=== PATIENT | female | born 1930 | race Caucasian/White ===

== ENCOUNTER 2019-08-16 02:59 | Emergency (ER) | payer MEDICARE, BC ==
[~2019-08-16] VITALS: Ht 160 cm; Wt 62.1 kg
[2019-08-16] MEDS ORDERED: LINA145C PO (03:18)
[2019-08-16] MEDS ORDERED: MULT1TAB72 PO (03:18)
[2019-08-16] MEDS ORDERED: CYCL5.5D OP (03:18)
[2019-08-16] MEDS ORDERED: FENT1PAT6 TOP (03:18)
[2019-08-16] MEDS ORDERED: HYDR-4384 PO (03:18)
[2019-08-16] MEDS ORDERED: LEVO100T PO (03:18)
[2019-08-16] MEDS ORDERED: OLAN5TAB3 PO (03:18)
[2019-08-16] MEDS ORDERED: TIMO5DRO39 OP (03:18)
[2019-08-16] MEDS ORDERED: TRAM50TA2 PO (03:18)
[2019-08-16] MEDS ORDERED: ATOR20TA PO (03:18)
--- NOTE | 2019-08-16 03:20 | NUR ---
Patient PAOLO GARZA from [facility]. c/o mechanical fall. Patient A&O x4. small laceration noted on left forehead. Patient states she was trying to grab something beside her bed and she fell. Patient denies any LOC. Speech is clear and able to make needs known / follow commands. Patient denies any JACOME, Blurred vision, dizziness. Patient also c/o right shoulder soreness. Patient able to move LUE pulses palpable, no visible injury noted. Breathing even and unlabored. no cough or SOB noted. Denies any N / V / D.
--- NOTE | 2019-08-16 03:20 | NUR ---
Dr. Long at bedside for MSE
[2019-08-16] MEDS ORDERED: ACETAMINOPHEN ES 500 MG TABLET ONE (03:29)
[2019-08-16] MEDS ORDERED: ACETAMINOPHEN ES 500 MG TABLET PO ONE (03:30)
--- NOTE | 2019-08-16 03:33 | NUR ---
patient taken to CT scan in stable condition via gurney
--- NOTE | 2019-08-16 03:58 | NUR ---
Patient back from CT scan
--- NOTE | 2019-08-16 04:51 | NUR ---
Spoke with Staff from [facility] and informed that patient is being d/c from ED. Transportation set up with [employer] trip # [id number] with eta of [id number]. Patient is going to room 237
--- NOTE | 2019-08-16 05:00 | NUR ---
Patient in bed sleeping but easily arousable. Breathing even and unlabored. NAD noted
--- NOTE | 2019-08-16 07:16 | NUR ---
Patient taken by [facility] unit [address] in stable condition. all belongings with patient. NAD
[2019-08-16 07:18] VITALS: BP 103/55
== END 2019-08-16 07:19 ==
LOC: ER 03:03
DX: S00.81XA Abrasion of other part of head, initial encounter (principal); S49.91XA Unspecified injury of right shoulder and upper arm, initial encounter; W06.XXXA Fall from bed, initial encounter; Y92.092 Bedroom in other non-institutional residence as the place of occurrence of the external cause; M50.30 Other cervical disc degeneration, unspecified cervical region; E78.5 Hyperlipidemia, unspecified; E03.9 Hypothyroidism, unspecified; I67.2 Cerebral atherosclerosis
CPT/HCPCS: 70450; 72125; 73030; A4663; A9150

== ENCOUNTER 2020-09-15 11:30 | Emergency (ER) | payer MEDICARE, BC ==
[~2020-09-15] VITALS: Ht 160 cm; Wt 63.5 kg
[~2020-09-15 11:30] MED LIST: ATOR20TA PO; CYCL5.5D OP; FENT1PAT6 TOP; HYDR-4384 PO; LEVO100T PO; LINA145C PO; MULT1TAB72 PO; OLAN5TAB3 PO; TIMO5DRO39 OP; TRAM50TA2 PO
--- NOTE | 2020-09-15 11:30 | NUR ---
Patient is awake, respiration:easy, moves all extremities with her private [email or web address].
[2020-09-15] MEDS ORDERED: IV NORMAL SALINE 1000 ML BAG IV ONE (11:45)
[2020-09-15] MEDS ORDERED: ONDANSETRON 4 MG/2 ML VIAL IV ONE (11:45)
[2020-09-15] MEDS ORDERED: FENT1PAT6 TP (11:55)
[2020-09-15] MEDS ORDERED: ONDANSETRON 4 MG/2 ML VIAL ONE (12:01)
[2020-09-15] MEDS ORDERED: COLL30OI TOP (12:02)
[2020-09-15] MEDS ORDERED: ACET-2154 PO (12:02)
[2020-09-15] MEDS ORDERED: TRIA1CAP19 PO (12:02)
[2020-09-15 12:25] LABS: HEMATOCRIT 37.2 % (31.2-41.9); MEAN CORPUSCULAR HEMOGLOBIN 30.3 uug (24.7-32.8); MEAN CORPUSCULAR VOLUME 94.2 fL (75.5-95.3); PLATELET COUNT (AUTO) 379 K/uL (179-408)
[2020-09-15 12:31] LABS: CREATININE 0.8 mg/dL (0.6-1.3); POTASSIUM 3.8 mmol/L (3.5-5.1)
[2020-09-15 12:37] LABS: BILIRUBIN,DIRECT 0.1 mg/dL (0.0-0.2); BILIRUBIN,TOTAL 0.4 mg/dL (0.2-1.0); TOTAL PROTEIN, SERUM 7.3 g/dL (6.4-8.2)
[2020-09-15 12:57] LABS: *BILIRUBIN,URIN NEGATIVE (NEGATIVE); *CLARITY,URINE SLIGHTLY CLOUDY (CLEAR); *COLOR,URINE YELLOW (YELLOW); *KETONES,URINE NEGATIVE (NEGATIVE); *UROBILINOGEN,URINE 0.2 E.U./dl (NORMAL); LEUKOCYTE ESTERASE ,URINE 2+ (NEGATIVE); NITRITE, URINE NEGATIVE (NEGATIVE); UGLUCOSE NEGATIVE (NEGATIVE)
[2020-09-15 12:58] LABS: *BLOOD, URINE TRACE (NEGATIVE)
--- NOTE | 2020-09-15 13:08 | NUR ---
No acute change in condition seen. Patient is resting comfortably on gurney with eyes closed.
[2020-09-15] MEDS ORDERED: NITROFURANTOIN/NITROFURAN MAC 100 MG CAPSULE PO ONE ×2 (13:30→13:36)
--- NOTE | 2020-09-15 14:06 | NUR ---
Patient was assisted to bathroom to void. Patient denies any pains@the moment.
[2020-09-15 14:27] LABS: BACTERIA,URINE MANY /HPF (NONE SEEN); MUCUS,URINE FEW /LPF (0-FEW); SQUAMOUS EPITHELIAL CELL,UR FEW /HPF (NONE SEEN); URINE AMORPHOUS PHOSPHATES MANY /HPF; WBC,URINE TNTC /HPF (0-3)
--- NOTE | 2020-09-15 14:27 | NUR ---
IV removed. Catheter intact and site benign. Pressure and 4x4 gauze applied to site. No bleeding noted. Patient discharged to assisted living home in stable condition. Written and verbal after care instructions given to patient's caregiver and copies of all the tests results were provided as well. Patient's caregiver Dominique verbalized understanding and compliance of instructions. Stressed follow up primary doctor or return to ER for worsening s/s.
== END 2020-09-15 14:36 ==
LOC: ER 11:30
DX: N39.0 Urinary tract infection, site not specified (principal); H40.9 Unspecified glaucoma; E78.5 Hyperlipidemia, unspecified; E03.9 Hypothyroidism, unspecified; Z98.1 Arthrodesis status; Z88.1 Allergy status to other antibiotic agents; R94.31 Abnormal electrocardiogram [ECG] [EKG]
CPT/HCPCS: 36415; 71045; 74176; 80048; 80076; 81001; 83605; 83690; 84484; 85025; 85730; 87040; 87086; 93005; 96361; 96374; 99285; J2405; 70030-TC; 87077; A4663; J7030

== ENCOUNTER 2021-01-31 11:41 | Inpatient (IN) | payer MEDICARE, BC ==
[~2021-01-31] VITALS: Ht 160 cm; Wt 68.0 kg
[~2021-01-31 11:41] MED LIST changes: +ACET-2154 PO; +COLL30OI TOP; +FENT1PAT6 TP; +TRIA1CAP19 PO
[2021-01-31] MEDS ORDERED: IV NORMAL SALINE 1000 ML BAG IV ONE ×2 (12:00→16:00)
[2021-01-31] MEDS ORDERED: CICL15CR12 TP (12:42)
[2021-01-31] MEDS ORDERED: LOPE2CAP14 PO (12:42)
[2021-01-31] MEDS ORDERED: MUPI22OI2 (12:42)
[2021-01-31] MEDS ORDERED: CIPR2.5D14 EACHEYE (12:42)
[2021-01-31 13:00] LABS: MEAN CORPUSCULAR HEMOGLOBIN 30.2 uug (24.7-32.8); MEAN CORPUSCULAR VOLUME 92.6 fL (75.5-95.3); PLATELET COUNT (AUTO) 379 K/uL (179-408)
[2021-01-31 13:14] LABS: POTASSIUM 3.6 mmol/L (3.5-5.1)
[2021-01-31] MEDS ORDERED: CEFTRIAXONE 1 G in IV DEXTROSE 5% 50 ML IV ONE (13:15)
[2021-01-31 13:21] LABS: BILIRUBIN,DIRECT 0.2 mg/dL (0.0-0.2); BILIRUBIN,TOTAL 0.5 mg/dL (0.2-1.0); TOTAL PROTEIN, SERUM 7.3 g/dL (6.4-8.2)
[2021-01-31] MEDS ORDERED: CEFTRIAXONE /D5W 50ML IVPB **ER PYXIS IV ONE (13:32)
--- NOTE | 2021-01-31 14:07 | NUR ---
pt is hard stick, lab could not draw cultures. Pt is refusing catheter at this time. aware.
[2021-01-31] MEDS ORDERED: VANCOMYCIN IV 1,000 MG in IV DEXTROSE 5% 250 ML IV ONE (16:00)
--- NOTE | 2021-01-31 16:52 | NUR ---
cleaned patient, changed linen. Attempted to place murrell using aseptic technique, unsuccessful. Pt refused second attempt. Pt displaced IV line, second line started 22g right shoulder
[2021-01-31] MEDS ORDERED: VANCOMYCIN IV 200 ML ONE (16:55)
[2021-01-31] MEDS ORDERED: IV NS 1000 ML 1,000 ML IV PRN (19:45)
--- NOTE | 2021-01-31 21:42 | NUR ---
Report given to Daniella BLACKMAN Tele.
[2021-01-31] MEDS ORDERED: ACETAMINOPHEN 325 MG TABLET PO PRN (22:15)
[2021-01-31] MEDS ORDERED: ONDANSETRON 4 MG/2 ML VIAL IV PRN (22:15)
[2021-01-31] MEDS ORDERED: MAGNESIUM HYDROXIDE 30 ML LIQUID UDC PO PRN (22:15)
[2021-01-31] MEDS ORDERED: MEROPENEM 500 MG VIAL IV ONE (22:20)
[2021-01-31] MEDS ORDERED: MEROPENEM 0.5 G in IV NORMAL SALINE 50 ML IV SCH (23:00)
[2021-02-01] VITALS: BP 115/51
[2021-02-01 04:21] VITALS: BP 114/45
--- NOTE | 2021-02-01 05:34 | NUR ---
Pt slept intermittently. Confused, AOx1. IV site intact. Sacral wound assessed and cleaned. Pt incontinent with a diaper. Vital signs stable. No other issues or concerns at this time will endorse to day shift.
[2021-02-01 07:03] LABS: HEMATOCRIT 34.5 % (31.2-41.9); MEAN CORPUSCULAR HEMOGLOBIN 30.3 uug (24.7-32.8); MEAN CORPUSCULAR VOLUME 93.3 fL (75.5-95.3); PLATELET COUNT (AUTO) 313 K/uL (179-408)
[2021-02-01] MEDS ORDERED: MEROPENEM 0.5 G in IV NORMAL SALINE 50 ML IV ONE (08:00)
[2021-02-01 08:09] LABS: CREATININE 0.9 mg/dL (0.6-1.3); MAGNESIUM 1.9 mg/dL (1.8-2.4); PHOSPHOROUS 3.6 mg/dL (2.5-4.9); POTASSIUM 3.7 mmol/L (3.5-5.1)
[2021-02-01] MEDS ORDERED: POTASSIUM CHLORIDE 20 MEQ in IV D5/ 0.9% NACL 1,000 ML IV PRN (08:30)
[2021-02-01] MEDS ORDERED: BISACODYL 10 MG SUPP.RECT RC ONE (08:30)
[2021-02-01] MEDS ORDERED: MEROPENEM 0.5 G in IV NORMAL SALINE 50 ML IV SCH (11:00)
--- NOTE | 2021-02-01 11:03 | NUR ---
WOUND CARE CONSULT: PT PRESENTS WITH LEFT BUTTOCK OPEN WOUND WITH LEFT BUTTOCK WOUND WHICH HAS IODOFORM PACKING, PRESENT ON ADMISSION. PACKING CHANGED. SURGICAL CONSULT CALLED TO DR STANLEY. RECOMMENDATIONS MADE FOR SKIN PROTECTION. DISCUSSED WITH NURSING STAFF. IN AGREEMENT WITH PLAN OF CARE. Addendum: 02/01/21 at 1104 by ZACH GHOSH RN Amended: Links added.
[2021-02-01 11:06] LABS: *BILIRUBIN,URIN NEGATIVE (NEGATIVE); *BLOOD, URINE 2+ (NEGATIVE); *COLOR,URINE YELLOW (YELLOW); *KETONES,URINE NEGATIVE (NEGATIVE); *UROBILINOGEN,URINE 0.2 E.U./dl (NORMAL); LEUKOCYTE ESTERASE ,URINE 1+ (NEGATIVE); NITRITE, URINE POSITIVE (NEGATIVE); PH,URINE 5.5 (5.0-8.0); UGLUCOSE NEGATIVE (NEGATIVE)
[2021-02-01] MEDS ORDERED: Z GUARD REMEDY PASTE 57 GM TUBE TOP PRN (11:15)
[2021-02-01 11:26] VITALS: BP 124/49
[2021-02-01] MEDS ORDERED: HYDROCODONE/APAP 5-325MG TABLET PO PRN (12:15)
[2021-02-01] MEDS ORDERED: NALOXONE HCL 0.4 MG/ML AMPUL IV PRN (12:15)
[2021-02-01 14:10] LABS: *CLARITY,URINE CLOUDY (CLEAR)
[2021-02-01 14:13] LABS: BACTERIA,URINE MANY /HPF (NONE SEEN); SQUAMOUS EPITHELIAL CELL,UR MODERATE /HPF (NONE SEEN); WBC,URINE 50-80 /HPF (0-3)
[2021-02-01 15:44] VITALS: BP 116/42
[2021-02-01] MEDS: MEROPENEM 1 G in IV NORMAL SALINE 100 ML IV SCH (16:22)
[2021-02-01] MEDS ORDERED: TIMO5DRO18 EACHEYE (16:48)
[2021-02-01] MEDS ORDERED: CYCLOSPORINE OP SCH (17:00)
[2021-02-01] MEDS: VANCOMYCIN IV 750 MG in IV DEXTROSE 5% 250 ML IV SCH (17:56)
[2021-02-01] MEDS: CYCLOSPORINE 0.05% EACHEYE SCH (17:58)
--- NOTE | 2021-02-01 19:36 | NUR ---
Pt is asleep in room currently. Pt is a/ox 1, confused, repeats questions. wound consult came in today, wound on sacrum/buttocks packed and changed. 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 Pt refused murrell catheter, she uses diaper instead, incontinent x 2. Pt is NPO due to infectious proctitis and impacted stool, fluids and medications are okay. Pelvic MRI cancelled by . IV intact and running antibiotics. comfort measures provided, call light in reach, will endorse to awake overnight counselor RN.
[2021-02-01 20:00] VITALS: BP 121/52
[2021-02-01] MEDS: Z GUARD REMEDY PASTE 57 GM TUBE TOP SCH (20:25)
[2021-02-01] MEDS ORDERED: BISACODYL 5 MG TABLET.DR PO ONE (22:15)
[2021-02-01] MEDS: DOCUSATE SODIUM 100 MG CAPSULE PO SCH (23:04)
[2021-02-01] MEDS: IV NS 1000 ML 1,000 ML IV PRN (23:13)
[2021-02-02] VITALS: BP 111/56
[2021-02-02] MEDS: MEROPENEM 1 G in IV NORMAL SALINE 100 ML IV SCH ×2 (03:58→15:21)
[2021-02-02 04:00] VITALS: BP 123/45
--- NOTE | 2021-02-02 05:50 | NUR ---
Slept throughout the night. Denies pain. No distress noted. IV site intact. Able to tolerate fluids. Will endorse to day shift.
[2021-02-02] MEDS: LEVOTHYROXINE SODIUM 100 MCG TABLET PO SCH (06:42)
--- NOTE | 2021-02-02 08:25 | NUR ---
PATIENT SEEN AND EXAMINED BY DR CALDERON WITH ORDER TO DISCONTINUE TELEMETRY AND NOTED.
[2021-02-02] MEDS ORDERED: Linaclotide (Linzess) 145 MCG) PO SCH (09:00)
[2021-02-02] MEDS ORDERED: MULTIVITS W FE OTHER MIN PO SCH (09:00)
[2021-02-02] MEDS: DOCUSATE SODIUM 100 MG CAPSULE PO SCH ×2 (09:07→20:19)
[2021-02-02] MEDS: OLANZAPINE 5 MG TABLET PO SCH (09:07)
[2021-02-02] MEDS: FENTANYL 50 MCG/HR PATCH TD SCH (09:07)
[2021-02-02] MEDS: MULTIVITAMINS,THERAPEUTIC TABLET PO SCH (09:07)
[2021-02-02] MEDS: CYCLOSPORINE 0.05% EACHEYE SCH ×2 (09:08→16:59)
[2021-02-02] MEDS: LINZESS 145 MCG PO SCH (09:09)
[2021-02-02] MEDS: TIMOLOL MALEATE 0.5% EACHEYE SCH (09:09)
[2021-02-02] MEDS: Z GUARD REMEDY PASTE 57 GM TUBE TOP SCH ×2 (09:12→20:19)
[2021-02-02] MEDS: SANTYL TOP SCH (09:13)
[2021-02-02 09:27] LABS: HEMATOCRIT 36.6 % (31.2-41.9); MEAN CORPUSCULAR HEMOGLOBIN 30.5 uug (24.7-32.8); MEAN CORPUSCULAR VOLUME 92.6 fL (75.5-95.3); PLATELET COUNT (AUTO) 327 K/uL (179-408)
[2021-02-02 09:30] LABS: CREATININE 0.9 mg/dL (0.6-1.3); POTASSIUM 3.2 mmol/L (3.5-5.1)
[2021-02-02 12:00] VITALS: BP 135/60
[2021-02-02] MEDS: MIRALAX 17 GM POWD.PACK PO SCH (13:20)
--- NOTE | 2021-02-02 14:00 | NUR ---
NEW ORDER NOTED FOR MRI OF THE SPINE TO RULE OUT OSTEO PATIENTS PRIVATE ACID[employer]ER WATER WELL AT HER BEDSIDE AND ASSISTED WITH FILLING OUT THE MRI QUESTIONARE AND SHE STATED THAT SHE ALSO CALLED [id number] SON RODNEY AND HE IS AWARE AND ASSITED WITH FILLING OUT THE FORMS.
[2021-02-02 16:17] VITALS: BP 129/44
[2021-02-02] MEDS: VANCOMYCIN IV 750 MG in IV DEXTROSE 5% 250 ML IV SCH (16:53)
--- NOTE | 2021-02-02 17:00 | NUR ---
PATIENT IS IN BED AWAKE ALERT BUT CONFUSED ASKING FOR HER FATHER SEEMS UNAWARE OF HER DESTINATION AND DOES NOT KNOW WHAT SHE WANTS REASSURED AND MADE COMFORTABLE WILL CONTINUE TO OBSERVE.
--- NOTE | 2021-02-02 18:00 | NUR ---
SPOKE WITH PATIENTS SON RODNEY GARZA AND HER DAUGHTER DIANN CROCKER AND THEY ARE AWARE OF THE MRI STATED NOT SURE IF THEY WANT THE MRI STATED PATIENT HAS SPINAL FUSSION AND NOT SURE IF THIS PATIENT IS A CANDIDATE FOR MRI AND THEY STATED WILL CALL DR JIANG HIS PHONE NUMBER PROVIDED TO THEM WILL NOTIFY THE MRI TEAM RE PATIENTS SPINAL FUSSION PRIOR TO MRI.
[2021-02-02 20:00] VITALS: BP 117/42
[2021-02-02] MEDS: IV NS 1000 ML 1,000 ML IV PRN (20:18)
[2021-02-03 04:00] VITALS: BP 110/40
[2021-02-03] MEDS: MEROPENEM 1 G in IV NORMAL SALINE 100 ML IV SCH ×2 (04:34→16:22)
[2021-02-03] MEDS: IV NS 1000 ML 1,000 ML IV PRN (04:35)
--- NOTE | 2021-02-03 05:30 | NUR ---
Slept throughout the night. Denies pain or SOB. IV site intact. Confused but able to make needs known. no other issues or concerns at this time, will endorse to day shift.
[2021-02-03] MEDS ORDERED: ALBUTEROL SULFATE 2.5 MG/3 ML NEBU NEB PRN (07:00)
[2021-02-03] MEDS: LEVOTHYROXINE SODIUM 100 MCG TABLET PO SCH (07:08)
--- NOTE | 2021-02-03 09:07 | NUR ---
Received a call from [facility] re: MRI of L spine w/o contrast, per tech patient to come to hospital as soon as possible. Called [facility] spoke with Nilo, per NILO they will be here between 45-60 minutes.
[2021-02-03 09:35] LABS: HEMATOCRIT 37.1 % (31.2-41.9); MEAN CORPUSCULAR HEMOGLOBIN 30.8 uug (24.7-32.8); MEAN CORPUSCULAR VOLUME 93.6 fL (75.5-95.3); PLATELET COUNT (AUTO) 310 K/uL (179-408)
[2021-02-03] MEDS: CYCLOSPORINE 0.05% EACHEYE SCH ×2 (09:43→17:51)
[2021-02-03] MEDS: LINZESS 145 MCG PO SCH (09:43)
[2021-02-03] MEDS: DOCUSATE SODIUM 100 MG CAPSULE PO SCH ×2 (09:43→20:35)
[2021-02-03] MEDS: MULTIVITAMINS,THERAPEUTIC TABLET PO SCH (09:43)
[2021-02-03] MEDS: OLANZAPINE 5 MG TABLET PO SCH (09:43)
[2021-02-03] MEDS: MIRALAX 17 GM POWD.PACK PO SCH (09:43)
[2021-02-03 09:49] LABS: CREATININE 0.8 mg/dL (0.6-1.3); POTASSIUM 2.9 mmol/L (3.5-5.1)
[2021-02-03] MEDS: TIMOLOL MALEATE 0.5% EACHEYE SCH (09:53)
[2021-02-03] MEDS: Z GUARD REMEDY PASTE 57 GM TUBE TOP SCH ×2 (09:54→20:35)
[2021-02-03] MEDS: SANTYL TOP SCH (09:54)
[2021-02-03 09:55] LABS: BILIRUBIN,TOTAL 0.6 mg/dL (0.2-1.0); TOTAL PROTEIN, SERUM 6.9 g/dL (6.4-8.2)
[2021-02-03] MEDS ORDERED: POTASSIUM CHLORIDE 20 MEQ TAB.PRT.SR PO ONE ×3 (11:00→13:00)
[2021-02-03 12:00] VITALS: BP 116/47
[2021-02-03] MEDS ORDERED: diphenhydrAMINE 50 MG/1 ML VIAL IV PRN (13:00)
[2021-02-03] MEDS ORDERED: methylPREDNISolone SOD SUCC 125 MG/2 ML VIAL IV PRN (13:00)
[2021-02-03 16:10] VITALS: BP 119/56
[2021-02-03] MEDS ORDERED: VANCOMYCIN IV 1,250 MG in IV DEXTROSE 5% 250 ML IV SCH (18:00)
[2021-02-03 20:00] VITALS: BP 134/57
--- NOTE | 2021-02-04 | NUR ---
pt transferred to ER for Med Surg overflow; VSS; report given to Elijah
--- NOTE | 2021-02-04 00:08 | NUR ---
Patient brougth down via hospital bed from 3rd floor Med Surg to hold in ER as inpatient for hospital's convenient.
--- NOTE | 2021-02-04 02:45 | NUR ---
PT NOTED TO BE ASLEEP IN NO APPARENT DISTRESS.
[2021-02-04] MEDS: MEROPENEM 1 G in IV NORMAL SALINE 100 ML IV SCH ×2 (04:05→17:52)
--- NOTE | 2021-02-04 04:41 | NUR ---
PT RESTING IN BED, EYES CLOSED, BREATHING EVEN AND UNLABORED.
--- NOTE | 2021-02-04 06:37 | NUR ---
PT RESTING IN BED AWAKE, DENIES ANY PAIN/DISCOMFORT. NO SOB OR LABORED BREATHING.
[2021-02-04] MEDS: LEVOTHYROXINE SODIUM 100 MCG TABLET PO SCH (07:05)
[2021-02-04 07:06] LABS: HEMATOCRIT 33.8 % (31.2-41.9); MEAN CORPUSCULAR HEMOGLOBIN 30.7 uug (24.7-32.8); MEAN CORPUSCULAR VOLUME 93.5 fL (75.5-95.3); PLATELET COUNT (AUTO) 317 K/uL (179-408)
[2021-02-04] MEDS ORDERED: LEVOTHYROXINE SODIUM 112 MCG TABLET ONE (07:11)
[2021-02-04 07:22] LABS: CREATININE 0.7 mg/dL (0.6-1.3); MAGNESIUM 1.8 mg/dL (1.8-2.4); PHOSPHOROUS 2.3 mg/dL (2.5-4.9); POTASSIUM 3.4 mmol/L (3.5-5.1)
[2021-02-04] MEDS ORDERED: DOCUSATE SODIUM 100 MG CAPSULE PO ONE (08:56)
[2021-02-04] MEDS ORDERED: MIRALAX 17 GM POWD.PACK ONE (08:56)
[2021-02-04] MEDS ORDERED: OLANZAPINE 5 MG TABLET ONE (08:56)
[2021-02-04] MEDS: MULTIVITAMINS,THERAPEUTIC TABLET PO SCH (09:00)
[2021-02-04] MEDS: LINZESS 145 MCG PO SCH (09:00)
[2021-02-04] MEDS: TIMOLOL MALEATE 0.5% EACHEYE SCH ×2 (09:00→17:19)
[2021-02-04] MEDS: CYCLOSPORINE 0.05% EACHEYE SCH ×2 (09:45→18:02)
[2021-02-04] MEDS: DOCUSATE SODIUM 100 MG CAPSULE PO SCH ×2 (09:45→20:01)
[2021-02-04] MEDS: MIRALAX 17 GM POWD.PACK PO SCH (09:45)
[2021-02-04] MEDS: OLANZAPINE 5 MG TABLET PO SCH (09:45)
--- NOTE | 2021-02-04 13:00 | NUR ---
Pt refused food tray again
[2021-02-04] MEDS ORDERED: POTASSIUM CHLORIDE 20 MEQ TAB.PRT.SR PO ONE (15:15)
[2021-02-04] MEDS ORDERED: POTASSIUM CHLORIDE 20 MEQ TAB.PRT.SR PO SCH (15:15)
--- NOTE | 2021-02-04 15:32 | NUR ---
Gave report to HIRAL Yepez
--- NOTE | 2021-02-04 15:48 | NUR ---
Pt transferred up to room #302. Could not pull medications (potassium) from pyxsis.
[2021-02-04] MEDS: Z GUARD REMEDY PASTE 57 GM TUBE TOP SCH ×2 (17:18→21:41)
[2021-02-04] MEDS: SANTYL TOP SCH (17:18)
[2021-02-04 17:25] VITALS: BP 135/51
[2021-02-04] MEDS: IV NS 1000 ML 1,000 ML IV PRN (17:56)
--- NOTE | 2021-02-04 19:05 | NUR ---
Received report, pt AO x 3, lying in semi-fowlers, Iv intact and patent, no complaints. Call lights within reach, safety measures initiated, bed alarm on. Will continue to monitor
[2021-02-04 20:00] VITALS: BP 125/38
[2021-02-04] MEDS ORDERED: NEUTRA PHOS PACKET PO ONE (20:00)
[2021-02-04] MEDS ORDERED: VANCOMYCIN IV 1,250 MG in IV DEXTROSE 5% 250 ML IV SCH (21:00)
[2021-02-05] MEDS: MEROPENEM 1 G in IV NORMAL SALINE 100 ML IV SCH (03:44)
[2021-02-05 04:00] VITALS: BP 126/54
--- NOTE | 2021-02-05 06:00 | NUR ---
Slept well throughout the night, AO x 2, confused this morning but is able to state her needs, on room air saturating at 93 %, tolerated medication and care well, IV site intact, VSS, will endorse to am shift.
[2021-02-05] MEDS ORDERED: LEVOTHYROXINE SODIUM 112 MCG TABLET PO SCH (07:15)
[2021-02-05 08:17] LABS: CREATININE 0.7 mg/dL (0.6-1.3); PHOSPHOROUS 2.8 mg/dL (2.5-4.9); POTASSIUM 3.7 mmol/L (3.5-5.1)
[2021-02-05] MEDS: MIRALAX 17 GM POWD.PACK PO SCH (08:22)
[2021-02-05] MEDS: OLANZAPINE 5 MG TABLET PO SCH (08:22)
[2021-02-05] MEDS: MULTIVITAMINS,THERAPEUTIC TABLET PO SCH (08:22)
[2021-02-05] MEDS: DOCUSATE SODIUM 100 MG CAPSULE PO SCH (08:22)
[2021-02-05] MEDS: TIMOLOL MALEATE 0.5% EACHEYE SCH (08:23)
[2021-02-05] MEDS: CYCLOSPORINE 0.05% EACHEYE SCH (08:23)
[2021-02-05] MEDS: FENTANYL 50 MCG/HR PATCH TD SCH (08:23)
[2021-02-05] MEDS: LINZESS 145 MCG PO SCH (08:38)
[2021-02-05] MEDS: Z GUARD REMEDY PASTE 57 GM TUBE TOP SCH (10:22)
[2021-02-05] MEDS: SANTYL TOP SCH (10:22)
[2021-02-05 11:00] VITALS: BP 91/40
[2021-02-05] MEDS ORDERED: AMOX-430 PO (11:22)
[2021-02-05 15:29] VITALS: BP 141/89
--- NOTE | 2021-02-05 16:18 | NUR ---
Patient discharge around 330pm in stable condition. not in distress. Patient cotton picker by ambulance with 2 EMT. Patient IV access remove prior discharge.
== END 2021-02-05 15:35 | disposition home health service (06) | DRG 871 ==
LOC: ER 11:43 → TELE3 22:20 → MEDSURG3 02-02 09:09 → TRANSITION 02-04 00:45 → TELE3 02-04 14:53 → MEDSURG3 02-04 17:28
PROVIDERS: ADMIT Internal Medicine; ATTEND Internal Medicine
DX: A41.9 Sepsis, unspecified organism (principal); G92.8 Other toxic encephalopathy; N39.0 Urinary tract infection, site not specified; D68.59 Other primary thrombophilia; E87.2 Acidosis; E03.9 Hypothyroidism, unspecified; G89.4 Chronic pain syndrome; Z98.1 Arthrodesis status; E66.9 Obesity, unspecified; E78.5 Hyperlipidemia, unspecified; F01.50 Vascular dementia, unspecified severity, without behavioral disturbance, psychotic disturbance, mood disturbance, and anxiety; H40.9 Unspecified glaucoma; I10 Essential (primary) hypertension; Z20.822 Contact with and (suspected) exposure to COVID-19; Z87.891 Personal history of nicotine dependence; Z87.440 Personal history of urinary (tract) infections; J32.0 Chronic maxillary sinusitis; Z90.710 Acquired absence of both cervix and uterus; R73.9 Hyperglycemia, unspecified; K40.20 Bilateral inguinal hernia, without obstruction or gangrene, not specified as recurrent; Z79.891 Long term (current) use of opiate analgesic; J32.2 Chronic ethmoidal sinusitis; K56.41 Fecal impaction; Z86.73 Personal history of transient ischemic attack (TIA), and cerebral infarction without residual deficits; Z68.26 Body mass index [BMI] 26.0-26.9, adult; K52.89 Other specified noninfective gastroenteritis and colitis; H70.93 Unspecified mastoiditis, bilateral; M51.37 Other intervertebral disc degeneration, lumbosacral region
CPT/HCPCS: 36415; 70030-TC; 70450; 71045; 72148; 83605; 83735; 84100; 85025; 85730; 87040; 87086; 93005; 94664; 97161; A4217; A6209; G0378; J0696; J2185; J3370; J3490; J7030; J7050; J7060